=== PATIENT | male | born 1950 | race Two or more races ===

== ENCOUNTER 2021-03-05 12:50 | Emergency (ER) | payer OTHER, MEDICAID ==
[~2021-03-05] VITALS: Ht 182.9 cm; Wt 79.4 kg
[2021-03-05] MEDS ORDERED: DEXAMETHASONE SOD PHOSPHATE 10 MG/ML VIAL ONE (13:13)
[2021-03-05] MEDS ORDERED: DEXAMETHASONE SOD PHOSPHATE 10 MG/ML VIAL IV ONE (13:30)
[2021-03-05 13:31] LABS: BASOPHILS # (AUTO) 0.2 K/uL (0.0-0.2); BASOPHILS % (AUTO) 2.6 % (0.0-2.0); EOSINOPHILS % (AUTO) 0.2 % (0.0-6.0); HEMATOCRIT 38 % (39-51); HEMOGLOBIN 12.4 g/dL (13.5-17.5); LYMPHOCYTES # (AUTO) 0.5 K/uL (0.8-4.8); LYMPHOCYTES % (AUTO) 8.4 % (20.0-44.0); MEAN CORPUSCULAR HGB CONC 33 g/dl (31.0-36.0); MEAN CORPUSCULAR VOLUME 92 fL (80-96); MONOCYTES # (AUTO) 0.4 K/uL (0.1-1.30); MONOCYTES % (AUTO) 7.2 % (2.0-12.0); NEUTROPHILS # (AUTO) 4.9 K/uL (1.8-8.9); NEUTROPHILS % (AUTO) 81.6 % (43.0-81.0); PLATELET COUNT (AUTO) 229 K/uL (150-450); RED BLOOD CELL COUNT(AUTO) 4.12 MIL/uL (4.5-6.0)
--- NOTE | 2021-03-05 13:32 | NUR ---
Patient camein to the er c/o sob and productive cough x 2 weeks. on 02 @lpm via [place] 02sat 94%. Connected to the monitor and pulse ox. kept comfortable, will continue to monitor accordingly.
[2021-03-05 13:41] LABS: CALCIUM, SERUM 8.7 mg/dL (8.5-10.1); CARBON DIOXIDE 25 mmol/L (21-32); CHLORIDE 105 mmol/L (98-107); GLUCOSE 137 mg/dL (74-106); SODIUM SERUM 142 mmol/L (136-145); UREA NITROGEN, BLOOD 26 mg/dL (7-18)
--- NOTE | 2021-03-05 13:45 | NUR ---
DR. PEMBERTON CALLED, SPEAKING WITH DR. HENDERSON.
[2021-03-05 13:47] LABS: ALANINE AMINOTRANSFERASE 33 U/L (12-78); ALKALINE PHOSPHATASE 61 U/L (46-116); ASPARTATE AMINOTRANSFERASE 32 U/L (15-37); BILIRUBIN,DIRECT 0.5 mg/dL (0.0-0.2); BILIRUBIN,TOTAL 0.8 mg/dL (0.2-1.0); TOTAL PROTEIN, SERUM 7.6 g/dL (6.4-8.2)
[2021-03-05] MEDS ORDERED: IV NS 0.9% 1,000 ML BAG IV ONE (14:00)
--- NOTE | 2021-03-05 14:00 | NUR ---
MOVE SHEET SUBMITTED.
--- NOTE | 2021-03-05 14:39 | NUR ---
covid + per lab
--- NOTE | 2021-03-05 14:42 | NUR ---
COVID POSITIVE. CALL [facility].
[2021-03-05 15:16] VITALS: BP 112/61
--- NOTE | 2021-03-05 15:26 | NUR ---
received a call from [facility], [facility] [employer], patient is going to [facility] , MD will call ER MD for report.
--- NOTE | 2021-03-05 15:34 | NUR ---
DR. OLIVARES SPEAKING WITH DR. RODRIGUEZ
--- NOTE | 2021-03-05 17:06 | NUR ---
GOING TO [facility] ADMITTING: MARSHALL MONTERO # REPORT: [phone] GOING TO [facility] ETA- 90 MINS TO 2 HOURS
--- NOTE | 2021-03-05 17:18 | NUR ---
called [facility] and spoke to Flo LEGER and report given.
--- NOTE | 2021-03-05 18:33 | NUR ---
patient picked up by private ambulance going to [facility] in no distress, accompanied by 2 emt and CCTRN.
== END 2021-03-05 18:33 | disposition short-term general hospital (02) ==
LOC: ER 12:53
DX: U07.1 COVID-19 (principal); J96.01 Acute respiratory failure with hypoxia; K50.90 Crohn's disease, unspecified, without complications; F17.200 Nicotine dependence, unspecified, uncomplicated; J91.8 Pleural effusion in other conditions classified elsewhere
CPT/HCPCS: 71045; 80048; 80076; 83605 ×2; 84145; 84484; 85025; 85730; 87040 ×2; 87081; 87426; 93005; 96361; 96374; 99291; C9803; J1100; U0003; 36415